=== PATIENT | male | born 1935 | race Caucasian/White ===

== ENCOUNTER 2016-10-20 18:10 | Emergency (ER) ==
[2016-10-20 18:24] VITALS: BP 154/91; TEMP 98; BMI 42.3
--- NOTE | 2016-10-20 18:38 | ED.PDOC ---
General Time Seen by Physician: 18:36 Information Source: Patient, Family Exam Limitations: No limitations Nursing and Triage Documentation Reviewed and Agree: No <JUAN MIGUEL MALHOTRA JR - Last Filed: 10/20/16 18:35> Stated Complaint: i was hurting Mode of Arrival: Walk-In Information Source: Patient, Family Exam Limitations: No limitations Nursing and Triage Documentation Reviewed and Agree: No <BRENTBenjaminJANINA RG - Last Filed: 10/20/16 20:21> ED Provider: Dr. JANINA GRIDER Chief Complaint: Abdominal Pain Primary Care Provider: ZACH ORTA GI Complaint Exam - Abdominal Pain Complaint/Exam Onset: Gradual Duration: 7 hrs Symptoms Are: Still present Timing: Intermittent Initial Severity: Mild Current Severity: Moderate Location of Pain: Diffuse Character: Reports: Dull, Aching Alleviating: Reports: None Associated Signs and Symptoms: Reports: Decreased appetite, Nausea, Vomiting. Denies: Diaphoresis, Fever, Cough, Chest pain, Dizziness, Back pain, Constipation, Blood in stool, Dysuria, Urinary frequency, Decreased urine output , Discharge Abdominal Findings: Present: None Differential Diagnoses: Bowel Obstruction, Constipation, Pancreatitis Quality Indicator For Non-Traumatic Chest Pain/Syncope: EKG Performed <BRENTTANIAJANINA - Last Filed: 10/20/16 20:21> Review of Systems - Review Of Systems Constitutional: Reports: No symptoms Eyes: Reports: No symptoms Ears, Nose, Mouth, Throat: Reports: No symptoms Respiratory: Reports: No symptoms Cardiac: Reports: No symptoms GI: Reports: No symptoms : Reports: No symptoms Musculoskeletal: Reports: No symptoms Skin: Reports: No symptoms Neurological: Reports: No symptoms Endocrine: Reports: No symptoms Hematologic/Lymphatic: Reports: No symptoms All Other Systems: Reviewed and Negative <BRENTBenjaminARCENIOJANINA - Last Filed: 10/20/16 20:21> Past Medical History - Social History Smoking Status: Former smoker Hx Substance Use: No Alcohol Screening: None <MALHOTRAJUAN MIGUEL SANTIAGO MCLEOD - Last Filed: 10/20/16 18:35> - Past Medical History Previously Healthy: Yes Endocrine: Reports: Unknown Cardiovascular: Reports: Unknown Respiratory: Reports: Unknown Hematological: Reports: Unknown Gastrointestinal: Reports: Unknown Genitourinary: Reports: Unknown Neuro/Psych: Reports: Unknown Musculoskeletal: Reports: Unknown Cancer: Reports: Unknown - Surgical History General Surgical History: Reports: Unknown - Family History Family History: Reports: Unknown - Social History Lives: With family <JANINA GRIDER - Last Filed: 10/20/16 20:21> Physical Exam - Physical Exam Appearance: Well-appearing, No pain distress, Well-nourished Pain Distress: Moderate Eyes: MILEY, EOMI, Conjunctiva clear ENT: Ears normal, Nose normal, Oropharynx normal Neck: Supple Respiratory: Airway patent, Breath sounds clear, Breath sounds equal, Respirations nonlabored Cardiovascular: RRR, Pulses normal, No rub, No murmur GI/: Soft, Nontender, No masses, Bowel sounds normal, No Organomegaly Musculoskeletal: Normal strength, ROM intact, No edema, No calf tenderness Skin: Warm, Dry, Normal color Neurological: Sensation intact, Motor intact, Reflexes intact, Cranial nerves intact, Alert, Oriented Psychiatric: Affect appropriate <BRENTTANIAJANINA - Last Filed: 10/20/16 20:21> Interpretation - Radiology Interpretation Radiology Interpretation By: Radiologist Radiology Results: Positive Exam Interpreted: CT Scan <ALEJOARCENIOJANINA Last Filed: 10/20/16 20:21> Re-Evaluation - Re-Evaluation Time of Re-Evaluation: 20:18 Status: Improved Vital Signs Stable: Yes Pain Level: 0 Appearance: NAD Lungs: Clear Skin: Warm and Dry Neuro: Alert and Oriented X3 CV: RRR <ALEJOARCENIOJANINA - Last Filed: 10/20/16 20:21> Physician Notification - Case Discussed Endorsed To/Discussed With: DR KENNEDY <JUAN MIGUEL MALHOTRA JR - Last Filed: 10/20/16 18:35> Critical Care Note - Critical Care Note Total Time (mins): 0 <CHEOJANINA - Last Filed: 10/20/16 20:21> Course <JUAN MIGUEL MALHOTRA JR - Last Filed: 10/20/16 18:35> - Course Hematology/Chemistry: 10/20/16 18:40 10/20/16 18:40 <CHEOJANINA - Last Filed: 10/20/16 20:21> - Course Orders, Labs, Meds: Lab Review 10/20/16 10/20/16 18:40 19:10 WBC 10.14 RBC 4.56 L Hgb 13.3 L Hct 41.3 L MCV 90.6 MCH 29.2 MCHC 32.2 RDW Coeff of Blair 15.1 H Plt Count 225 Immature Gran % (Auto) 0.3 Neut % (Auto) 88.7 Lymph % (Auto) 7.0 L [place] % (Auto) 3.4 Eos % (Auto) 0.1 Baso % (Auto) 0.5 Immature Gran # (Auto) 0.0 Neut # 9.0 H Lymph # 0.7 [place] # 0.3 L Eos # 0.0 Baso # 0.1 PT 24.7 H INR 2.40 Sodium 144 Potassium 4.2 Chloride 99 Carbon Dioxide 25 Anion Gap 24.2 BUN 23 H Creatinine 1.62 H Estimated GFR (MDRD) 41.00 BUN/Creatinine Ratio 14.19 Glucose 284 H Calcium 10.5 H Total Bilirubin 0.52 AST 16 ALT 19 Alkaline Phosphatase 61 Total Creatine Kinase 43 Troponin I 0.0250 Total Protein 8.6 H Albumin 4.1 Globulin 4.5 Albumin/Globulin Ratio 0.91 Amylase 69 Lipase 24 Urine Color Yellow Urine Clarity Clear Urine pH 5.0 Ur Specific [place] 1.020 Urine Protein 1+ Urine Glucose (UA) Trace Urine Ketones 1+ Urine Blood Trace-lysed Urine Nitrite Negative Urine Bilirubin Negative Urine Urobilinogen 0.2 Ur Leukocyte Esterase Negative Urine Microscopic RBC 2-5 Ur Squamous Epith Cells 5-10 H. pylori IgG Antibody Negative Orders Category Date Time Status EKG-(ED ONLY) Stat CARDIO 10/20/16 18:43 Completed ED IV/MEDIPORT/POWERPORT .ONCE EMERGENCY 10/20/16 18:33 Active AMYLASE Stat LAB 10/20/16 18:40 Completed CBC W/ AUTO DIFF Stat LAB 10/20/16 18:40 Completed COMPREHENSIVE METABOLIC PANEL Stat LAB 10/20/16 18:40 Completed CREATINE KINASE Stat LAB 10/20/16 18:40 Completed H. PYLORI SCREEN Stat LAB 10/20/16 18:40 Completed LIPASE Stat LAB 10/20/16 18:40 Completed PT WITH INR Stat LAB 10/20/16 18:40 Completed TROPONIN I Stat LAB 10/20/16 18:40 Completed URINALYSIS C & S IF INDICATED Stat LAB 10/20/16 19:10 Completed 0.9 % Sodium Chloride [Saline Flush] MEDS 10/20/16 18:33 Ordered 1 syr IVF PRN PRN Ondansetron HCl/Pf [Zofran 4 mg/2 ml] MEDS 10/20/16 18:47 Discontinued 4 mg IVP ONCE STA Sodium Chloride 0.9% [Sodium Chloride] 1,000 ml MEDS 10/20/16 18:42 Active IV 100 mls/hr CT ABDOMEN/PELVIS WO CONTRAST Stat RADS 10/20/16 18:34 Completed Medications Generic Name Dose Route Start Last Admin Trade Name Freq PRN Reason Stop Dose Admin Sodium Chloride 1,000 mls @ 100 mls/hr 10/20/16 18:42 10/20/16 19:55 Sodium Chloride IV 10/21/16 04:41 100 mls/hr .Q10H STA Administration Sodium Chloride 1 syr 10/20/16 18:33 Saline Flush IVF PRN PRN To flush IV Discontinued Medications Generic Name Dose Route Start Last Admin Trade Name Freq PRN Reason Stop Dose Admin Ondansetron HCl 4 mg 10/20/16 18:47 10/20/16 19:48 Zofran 4 Mg/2 Ml IVP 10/20/16 18:48 4 mg ONCE STA Administration Vital Signs: Temp Pulse Resp BP Pulse Ox 10/20/16 18:11 98.0 F 99 H 20 154/91 H 97 mr lucero feels his pain was positional --?hernia that reduced=---denies any nausea or vomiting--again her pain rsolved spontanously (JANINA GRIDER) Departure <JUAN MIGUEL MALHOTRA JR - Last Filed: 10/20/16 18:35> - Departure Time of Disposition: 20:20 Pt referred to PMD for follow-up: Yes Disposition Discussed With: Patient, Family <JANINA GRIDER - Last Filed: 10/20/16 20:21> - Departure Disposition: HOME SELF-CARE Discharge Problem: Abdominal pain Instructions: Abdominal Pain (ED) Condition: Good Additional Instructions: clear liquids--talk to dr orta nxt week about surgical referral for hernia, gallstones and your AAA--if you start having pain again--return to the er Allergies/Adverse Reactions: Allergies adhesive Adverse Reaction (Verified 10/20/16 18:35) Penicillins Adverse Reaction (Verified 10/20/16 18:35) Sulfa (Sulfonamide Antibiotics) Adverse Reaction (Verified 10/20/16 18:35) Home Medications: Ambulatory Orders Amlodipine Besylate 5 mg PO DAILY 08/05/13 Glimepiride 4 mg PO DAILY 08/05/13 Metformin HCl [Metformin HCl ER] 1,000 mg PO BEDTIME 08/05/13 Potassium Chloride [Micro-K Cap] 10 meq PO DAILY 08/05/13 Multivitamin [Multi Vitamin Daily] 1 each PO DAILY #1 tablet 08/08/13 Omeprazole [Prilosec] 20 mg PO QDAC PRN #1 capsule. 08/08/13 Warfarin Sodium [Coumadin] 5 mg PO DAILY tab-cap 09/23/13 Furosemide [Lasix] 40 mg PO DAILY 10/20/16 Hydroxyzine HCl [Atarax] 25 mg PO BEDTIME PRN 10/20/16 Mupirocin [Bactroban] 1 applic TP BID PRN 10/20/16 Oxycodone HCl/Acetaminophen [Oxycodone-Acetaminophen 10-325] 1 each PO Q6HR PRN 10/20/16
[2016-10-20 18:49] LABS: BASOPHILS # (AUTO) 0.1 K/uL (0-0.2); BASOPHILS % (AUTO) 0.5 % (0.0-3.0); EOSINOPHILS % (AUTO) 0.1 % (0.0-7.0); HEMATOCRIT 41.3 % (42.0-52.0); HEMOGLOBIN 13.3 g/dl (14.0-18.0); IMMATURE GRANULOCYTE % (AUTO) 0.3 % (0.0-5.0); LYMPHOCYTES # (AUTO) 0.7 K/uL (0.60-3.4); MEAN CORPUSCULAR HEMOGLOBIN 29.2 pg (27.0-31.0); MEAN CORPUSCULAR HGB CONC 32.2 (31.8-35.4); MEAN CORPUSCULAR VOLUME 90.6 fl (80.0-94.0); MONOCYTES # (AUTO) 0.3 K/uL (0.4-2.0); MONOCYTES % (AUTO) 3.4 (0-10); NEUTROPHILS % (AUTO) 88.7; PLATELET COUNT 225 10^3/uL (140-440); RED BLOOD COUNT 4.56 10^6/ul (4.70-6.10); WHITE BLOOD COUNT 10.14 K/ul (4.2-10.2)
[2016-10-20 18:59] LABS: H. PYLORI ANTIBODY NEGATIVE (NEGATIVE); H.PYLORI INTERNAL QC INTERNAL QC VALID
[2016-10-20 19:14] LABS: PROTHROMBIN TIME 24.7 SEC (9.3-11.0)
[2016-10-20 19:16] LABS: ALBUMIN 4.1 g/dL (3.4-5.0); ALBUMIN/GLOBULIN RATIO 0.91; ANION GAP 24.2; BILIRUBIN,TOTAL 0.52 mg/dL (0.00-1.20); BUN/CREATININE RATIO 14.19; CALCIUM 10.5 mg/dL (8.2-10.2); CREATININE 1.62 mg/dL (0.60-1.10); POTASSIUM 4.2 mmol/L (3.5-5.1); TOTAL PROTEIN 8.6 g/dL (5.8-8.1); TROPONIN I 0.025 ng/ml (0.0000-0.4000)
[2016-10-20 19:21] LABS: BILIRUBIN,URINE Negative (NEGATIVE); KETONES,URINE 1+ (NEGATIVE); LEUKOCYTE ESTERASE ,URINE Negative (NEGATIVE); NITRITE,URINE Negative (NEGATIVE); PROTEIN,URINE 1+ (NEGATIVE); URINE, BLOOD Trace-lysed (NEGATIVE)
[2016-10-20 19:25] LABS: ADD URINE MICROSCOPIC YES
[2016-10-20] MEDS: ZOFRAN 4 MG/2 ML IVP STA (19:48)
[2016-10-20] MEDS: SODIUM CHLORIDE 1,000 ML IV STA (19:55)
--- NOTE | 2016-10-20 20:05 | CT ---
EXAM: CT scan of the abdomen and pelvis without contrast HISTORY: Abdominal pain TECHNIQUE: Imaging of the abdomen and pelvis was performed without intravenous contrast. 3 mm thin axial images and coronal and sagittal reconstructions were provided for interpretation. Comparison none. FINDINGS: The liver, pancreas, adrenal glands appear normal. Multiple cysts are seen within the ki dneys bilaterally. Gallstones are identified. The small bowel loops are normal caliber. There is d iverticular disease of the descending colon and sigmoid colon without acute inflammation. There is a small hernia seen within the midline superior, anterior abdominal wall seen on axial image number 48. The transverse colon protrudes into the hernia. The hernia sac measures approximately 6.0 cm t ransverse, 2.6 cm AP. There is fusiform dilatation of the infrarenal abdominal aorta. The findings measure up to 5.2 cm AP, 5.5 cm transverse. The helical images obtained through the pelvis demonstrate a normal appearance of the rectum, urinar y bladder. There is no free fluid. The appendix was not seen. No definite inflammatory changes ar e seen in the right lower quadrant of the abdomen. Lung bases are clear. No lytic or blastic lesio ns are seen within the osseous structures. IMPRESSION: No evidence for small bowel obstruction. 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 Continued follow-up evaluation should be performed. Cholelithiasis. There is a hernia seen within the midline anterior abdominal wall containing a loop of transverse co zoe. The findings are not causing obstruction.
== END 2016-10-20 21:08 | disposition home or self-care (01) ==
LOC: ED 18:10
DX: R10.9 Unspecified abdominal pain (principal); K46.9 Unspecified abdominal hernia without obstruction or gangrene; K80.80 Other cholelithiasis without obstruction; I71.4 Abdominal aortic aneurysm, without rupture; Z79.899 Other long term (current) drug therapy
CPT/HCPCS: 36415; 80053; 81001; 82150; 82550; 83690; 84484; 85025; 85610; 86677; 93005; 93010; 96361; 96374; 99283

== ENCOUNTER 2018-02-04 14:15 | Outpatient (CLI) | payer OTHER | END 2018-02-04 14:33 | disposition short-term general hospital (02) | LOC: AMBL 14:15 | PROVIDERS: ATTEND Internal Medicine | DX: I48.91 Unspecified atrial fibrillation (principal) ==

== ENCOUNTER 2018-05-22 09:27 | Inpatient (IN) | payer OTHER ==
--- NOTE | 2018-05-22 11:01 | DI ---
EXAM: Single view of the chest HISTORY: Cough. COMPARISON: Chest x-ray 01/25/2011 FINDINGS: Cardiomediastinal silhouette is unchanged. There is blunting right costophrenic angle with adjacent ground-glass consolidation. The left lung is clear. The osseous structures are unremarkab le. IMPRESSION: Small right effusion with adjacent consolidation that may represent atelectasis or pneum onia.
--- NOTE | 2018-05-22 13:19 | ED.PDOC ---
General ED Provider: Dr. DAVID SHIPMAN Chief Complaint: Shortness of Air Stated Complaint: cough, shortness of breath arrived in no resp distress alert and fully orientated Time Seen by Physician: 09:40 Mode of Arrival: Ambulance Information Source: Patient, Care Home, EMT Exam Limitations: No limitations Primary Care Provider: ZACH ORTA Nursing and Triage Documentation Reviewed and Agree: Yes Does patient meet sepsis criteria?: Yes If yes, has appropriate treatment been initiated?: No System Inflammatory Response Syndrome: Not Applicable Sepsis Protocol: For patient's 13 years and over: Temp is 96.8 and below OR 101 and greater Pulse >90 BPM Resp >20/minute Acutely Altered Mental Status Are patient's symptoms suggestive of a new infection, such as: -Pneumonia -Skin, Soft Tissue -Endocarditis -UTI -Bone, Joint Infection -Implantable Device -Acute Abdominal Infection -Wound Infection -Meningitis -Blood Stream Catheter Infection -Unknown Respiratory Complaint Exam - Respiratory Complaint/Exam Symptoms Are: Resolved Timing: Intermittent Initial Severity: Mild Current Severity: None Location: Chest Character: Reports: Non-productive cough Aggravating: Reports: None Alleviating: Reports: Spontaneous resolution Associated Signs and Symptoms: Denies: Rapid breathing, Dyspnea, Fever, Chills, Chest pain, Pleuritic chest pain, Wheezing, Hemoptysis, Dizziness, Calf pain, Calf swelling, Edema, URI, Nasal congestion, Hoarseness, Sinus discomfort, Vomiting, Sore throat, Weight loss, Decreased oral intake, Increased thirst, Increased appetite, Increased urination History of Healthcare-Acquired Pneumonia: Lives at [facility] Related Surgical History: Reports: None Pulmonary Embolism Risk Factors: Bedrest Cardiac Risk Factors: Reports: Diabetes, Hypertension Pseudomonas Risk Factors: Reports: None Tuberculosis Risk Factors: Reports: None Status Asthmaticus Risk Factors: Reports: None Home Oxygen Use: Yes Recent Stress Test: No Recent Echo/LV Function: No Current Antibiotic Use: No Current Asthma Medication Use: No Respiratory Distress: None Inadequate Respiratory Effort: No Dysphagia Present: No Stridor Present: No JVD Present: No Accessory Muscle Use: No Retractions: Not Present Diminished Breath Sounds: No Sinus Tenderness: None Grunting Respirations: No Kussmaul Respirations: No Differential Diagnoses: CHF, Pulmonary Edema, Pneumonia, Bronchitis Review of Systems - Review Of Systems Constitutional: Reports: Malaise Eyes: Reports: No symptoms Ears, Nose, Mouth, Throat: Reports: No symptoms Respiratory: Reports: Cough, Short of air Cardiac: Reports: No symptoms GI: Reports: No symptoms : Reports: No symptoms Musculoskeletal: Reports: No symptoms Skin: Reports: No symptoms Neurological: Reports: No symptoms Endocrine: Reports: No symptoms Hematologic/Lymphatic: Reports: No symptoms All Other Systems: Reviewed and Negative Past Medical History - Past Medical History Previously Healthy: Yes Endocrine: Reports: Unknown Cardiovascular: Reports: Unknown Respiratory: Reports: Unknown Hematological: Reports: Unknown Gastrointestinal: Reports: Unknown Genitourinary: Reports: Unknown Neuro/Psych: Reports: Unknown Musculoskeletal: Reports: Unknown Cancer: Reports: Unknown - Surgical History General Surgical History: Reports: Unknown - Family History Family History: Reports: Unknown - Social History Smoking Status: Former smoker Hx Substance Use: No Alcohol Screening: None - Immunizations Tetanus Shot up to Date: Yes Physical Exam - Physical Exam Appearance: Ill-appearing Ill-appearing: Mild Eyes: MILEY, EOMI, Conjunctiva clear ENT: Ears normal, Nose normal, Oropharynx normal Respiratory: Breath sounds diminished (bases ), Rhonchi Cardiovascular: RRR, Pulses normal, No rub, No murmur GI/: Soft, Nontender, No masses, Bowel sounds normal, No Organomegaly Musculoskeletal: Normal strength, ROM intact, No edema, No calf tenderness Skin: Warm, Dry, Normal color Neurological: Sensation intact, Motor intact, Reflexes intact, Cranial nerves intact, Alert, Oriented Psychiatric: Affect appropriate, Mood appropriate Interpretation - Bookkeeping Manager Rate: Tachy Rhythm: Sinus Ectopy: None - EKG Interpretation Rate: Tachy Rhythm: Sinus Ectopy: None [place]: Left ST Segment: Other (LBBB PATTERN) Re-Evaluation - Re-Evaluation Time of Re-Evaluation: 11:00 Status: Improved Vital Signs Stable: Yes Pain Level: 0 Appearance: NAD Lungs: Clear Skin: Warm and Dry Neuro: Alert and Oriented X3 CV: RRR - Re-Evaluation Time of Re-Evaluation: 13:00 Status: Improved Vital Signs Stable: Yes Pain Level: 0 Appearance: NAD Skin: Warm and Dry Neuro: Alert and Oriented X3 CV: RRR (SPOKE TO FAMILY AND PMD LABS X RAY DISCUSSED) Physician Notification - Case Discussed Physician Notified: PMD Time of Notification: 13:21 Admit To: Observation Critical Care Note - Critical Care Note Total Time (mins): 0 Course - Course Hematology/Chemistry: 05/22/18 09:42 05/22/18 09:42 Orders, Labs, Meds: Lab Review 05/22/18 05/22/18 05/22/18 09:42 09:42 09:42 WBC 11.43 H RBC 3.94 L Hgb 11.3 L Hct 37.4 L MCV 94.9 H MCH 28.7 MCHC 30.2 L RDW Coeff of [place] 17.3 H Plt Count 226 Immature Gran % (Auto) 0.3 Neut % (Auto) 86.0 Lymph % (Auto) 7.0 L [place] % (Auto) 6.1 Eos % (Auto) 0.3 Baso % (Auto) 0.3 Immature Gran # (Auto) 0.0 Neut # (Auto) 9.8 H Lymph # (Auto) 0.8 [place] # (Auto) 0.7 Eos # (Auto) 0.0 Baso # (Auto) 0.0 PT 12.7 H INR 1.28 APTT 27.2 Puncture Site O2 Saturation ABG pH ABG pCO2 ABG pO2 ABG HCO3 ABG Total CO2 ABG Base Excess Yohannes Test O2 Delivery Device Oxygen Liter Flow FiO2 % Sodium 144.0 Potassium 4.58 Chloride 104.5 Carbon Dioxide 29.7 Anion Gap 14.38 BUN 21.5 H Creatinine 1.33 H Estimated GFR (MDRD) 51.00 BUN/Creatinine Ratio 16.16 Glucose 156.1 H Calcium 9.43 Total Bilirubin 1.77 H AST 23.2 ALT 14.5 Alkaline Phosphatase 99.8 Total Creatine Kinase < 20.0 L Troponin I 0.019 Total Protein 8.09 Albumin 3.79 Globulin 4.30 Albumin/Globulin Ratio 0.88 05/22/18 11:30 WBC RBC Hgb Hct MCV MCH MCHC RDW Coeff of [place] Plt Count Immature Gran % (Auto) Neut % (Auto) Lymph % (Auto) [place] % (Auto) Eos % (Auto) Baso % (Auto) Immature Gran # (Auto) Neut # (Auto) Lymph # (Auto) [place] # (Auto) Eos # (Auto) Baso # (Auto) PT INR APTT Puncture Site R rad O2 Saturation 96.0 ABG pH 7.437 ABG pCO2 40.6 ABG pO2 80.0 L ABG HCO3 27.4 H ABG Total CO2 29 H ABG Base Excess 3 H Yohannes Test + O2 Delivery Device Nc Oxygen Liter Flow 2.00 FiO2 % 28.0 Sodium Potassium Chloride Carbon Dioxide Anion Gap BUN Creatinine Estimated GFR (MDRD) BUN/Creatinine Ratio Glucose Calcium Total Bilirubin AST ALT Alkaline Phosphatase Total Creatine Kinase Troponin I Total Protein Albumin Globulin Albumin/Globulin Ratio Orders Category Date Time Status ABG DRAW REQUEST Stat CARDIO 05/22/18 11:30 Completed EKG-(ED ONLY) Stat CARDIO 05/22/18 10:11 Completed ABG Stat LAB 05/22/18 11:30 Completed CBC W/ AUTO DIFF Stat LAB 05/22/18 09:42 Completed COMPREHENSIVE METABOLIC PANEL Stat LAB 05/22/18 09:42 Completed CREATINE KINASE Stat LAB 05/22/18 09:42 Completed PARTIAL THROMBOPLASTIN TIME Stat LAB 05/22/18 09:42 Completed PT WITH INR Stat LAB 05/22/18 09:42 Completed TROPONIN I Stat LAB 05/22/18 09:42 Completed CHEST, 1V AP ONLY Stat RADS 05/22/18 10:41 Completed Vital Signs: Temp Pulse Resp BP Pulse Ox 05/22/18 09:28 99.1 F 88 22 125/80 92 L Departure - Departure Time of Disposition: 13:21 Disposition: PLACED OBSERVATION Discharge Problem: Shortness of breath Condition: Good Pt referred to PMD for follow-up: Yes IPMP verified?: No Allergies/Adverse Reactions: Allergies adhesive Adverse Reaction (Verified 10/20/16 18:35) Penicillins Adverse Reaction (Verified 10/20/16 18:35) Sulfa (Sulfonamide Antibiotics) Adverse Reaction (Verified 10/20/16 18:35) Home Medications: Ambulatory Orders Amlodipine Besylate 5 mg PO DAILY 08/05/13 Glimepiride 4 mg PO DAILY 08/05/13 Metformin HCl [Metformin HCl ER] 1,000 mg PO BEDTIME 08/05/13 Potassium Chloride [Micro-K Cap] 10 meq PO DAILY 08/05/13 Multivitamin [Multi Vitamin Daily] 1 each PO DAILY #1 tablet 08/08/13 Omeprazole [Prilosec] 20 mg PO QDAC PRN #1 capsule. 08/08/13 Warfarin Sodium [Coumadin] 5 mg PO DAILY tab-cap 09/23/13 Furosemide [Lasix] 40 mg PO DAILY 10/20/16 Hydroxyzine HCl [Atarax] 25 mg PO BEDTIME PRN 10/20/16 Mupirocin [Bactroban] 1 applic TP BID PRN 10/20/16 Oxycodone HCl/Acetaminophen [Oxycodone-Acetaminophen 10-325] 1 each PO Q6HR PRN 10/20/16 Disposition Discussed With: Patient, Family
[2018-05-22] MEDS ORDERED: PERCOCET 10-325 PO PRN (13:22)
[2018-05-22] MEDS ORDERED: SODIUM CHLORIDE 1,000 ML IV SCH (13:30)
[2018-05-22] MEDS ORDERED: HUMULIN R SUBCUT STA (13:30)
[2018-05-22 14:49] VITALS: BMI 47.7
[2018-05-22] MEDS ORDERED: BISACODYL 10 MG RC PRN (15:29)
[2018-05-22] MEDS ORDERED: AZELASTINE HCL OP PRN (15:29)
[2018-05-22] MEDS ORDERED: OXYCODONE ACETAMINOPHEN PO PRN (15:29)
[2018-05-22] MEDS ORDERED: SIMETHICONE 125 MG PO PRN (15:29)
[2018-05-22] MEDS ORDERED: INSULIN LISPRO 1 UNIT SUBCUT PRN (15:29)
[2018-05-22] MEDS ORDERED: BACTROBAN TP SCH (16:29)
[2018-05-22] MEDS ORDERED: INSULIN LISPRO SUBCUT PRN ×2 (16:30)
[2018-05-22] MEDS: PRILOSEC PO SCH (17:00)
[2018-05-22] MEDS ORDERED: PRILOSEC PO SCH (17:00)
[2018-05-22] MEDS: CARVEDILOL 3.125 MG PO SCH (17:01)
[2018-05-22] MEDS: GLIMEPIRIDE 1 MG PO SCH (17:01)
[2018-05-22] MEDS: ISOSORBIDE DINITRATE 10 MG PO SCH ×2 (17:01→21:01)
[2018-05-22] MEDS: DUONEB NEB SCH ×2 (17:05→23:40)
[2018-05-22] MEDS: ZOSYN 3.375 GM 3.375 GM in SODIUM CHLORIDE 50 ML IV SCH ×2 (19:33→21:00)
[2018-05-22] MEDS: SODIUM CHLORIDE 1,000 ML IV SCH (19:34)
[2018-05-22] MEDS ORDERED: NYSTOP POWDER TP ONE (20:27)
[2018-05-22] MEDS: NON-FORMULARY MEDICATION (Docusate Sodium [Docusate Sodium] 100 MG) PO SCH (20:42)
[2018-05-22] MEDS: NYSTATIN TP SCH (20:43)
[2018-05-22] MEDS: OXYCODONE HCL 20 MG PO SCH (21:00)
[2018-05-22] MEDS: NON-FORMULARY MEDICATION (Apixaban [Eliquis] 2.5 MG) PO SCH (21:01)
[2018-05-22] MEDS: VANCOMYCIN 1 GM in SODIUM CHLORIDE 250 ML IV SCH (21:02)
[2018-05-23] MEDS: ZOSYN 3.375 GM 3.375 GM in SODIUM CHLORIDE 50 ML IV SCH ×3 (04:28→21:08)
[2018-05-23] MEDS: DUONEB NEB SCH ×4 (04:50→23:18)
[2018-05-23] MEDS: PRILOSEC PO SCH (05:45)
[2018-05-23] MEDS: VANCOMYCIN 1 GM in SODIUM CHLORIDE 250 ML IV SCH ×3 (05:46→22:24)
[2018-05-23] MEDS ORDERED: LASIX TAB PO SCH ×2 (06:30→09:00)
[2018-05-23] MEDS ORDERED: MICRO-K CAP PO SCH (08:00)
[2018-05-23] MEDS: OXYCODONE HCL 20 MG PO SCH (08:17)
[2018-05-23] MEDS: NON-FORMULARY MEDICATION (Apixaban [Eliquis] 2.5 MG) PO SCH (08:18)
[2018-05-23] MEDS: GLIMEPIRIDE 1 MG PO SCH (08:19)
[2018-05-23] MEDS: CARVEDILOL 3.125 MG PO SCH (08:20)
[2018-05-23] MEDS: ISOSORBIDE DINITRATE 10 MG PO SCH (08:20)
[2018-05-23] MEDS: NON-FORMULARY MEDICATION (Docusate Sodium [Docusate Sodium] 100 MG) PO SCH (08:21)
[2018-05-23] MEDS: NYSTATIN TP SCH (08:22)
[2018-05-23] MEDS ORDERED: NORVASC PO SCH (09:00)
[2018-05-23] MEDS ORDERED: WARFARIN SODIUM 5 MG PO SCH (09:00)
[2018-05-23] MEDS ORDERED: FEBUXOSTAT 40 MG PO SCH (09:00)
[2018-05-23] MEDS ORDERED: DULCOLAX RC PRN (14:39)
[2018-05-23] MEDS ORDERED: PERCOCET 5-325 PO PRN (14:45)
[2018-05-23] MEDS ORDERED: MYLICON PO PRN (14:47)
[2018-05-23] MEDS ORDERED: HUMALOG SUBCUT PRN (14:53)
[2018-05-23] MEDS ORDERED: AZELASTINE HCL OP PRN (15:00)
[2018-05-23] MEDS: COREG PO SCH (16:59)
[2018-05-23] MEDS: SORBITRATE PO SCH (17:00)
[2018-05-23] MEDS: OXYCONTIN PO SCH (21:10)
[2018-05-23] MEDS: COLACE PO SCH (21:10)
[2018-05-23] MEDS: ELIQUIS PO SCH (21:10)
[2018-05-23] MEDS: NYSTOP POWDER TP SCH (22:24)
[2018-05-24] MEDS: DUONEB NEB SCH ×3 (04:27→17:00)
[2018-05-24] MEDS: ZOSYN 3.375 GM 3.375 GM in SODIUM CHLORIDE 50 ML IV SCH ×3 (04:35→20:48)
[2018-05-24] MEDS: VANCOMYCIN 1 GM in SODIUM CHLORIDE 250 ML IV SCH ×2 (05:49→14:09)
[2018-05-24] MEDS: LASIX TAB PO SCH (05:49)
[2018-05-24] MEDS: PRILOSEC PO SCH (05:50)
[2018-05-24] MEDS: MICRO-K CAP PO SCH (08:06)
[2018-05-24] MEDS: COLACE PO SCH ×2 (08:06→20:48)
[2018-05-24] MEDS: AMARYL PO SCH (08:06)
[2018-05-24] MEDS: OXYCONTIN PO SCH ×2 (08:07→20:49)
[2018-05-24] MEDS: COREG PO SCH ×2 (08:07→16:39)
[2018-05-24] MEDS: ULORIC PO SCH (08:07)
[2018-05-24] MEDS: ELIQUIS PO SCH ×2 (08:08→20:49)
[2018-05-24] MEDS: NYSTOP POWDER TP SCH ×2 (08:08→20:55)
[2018-05-24] MEDS: SORBITRATE PO SCH ×3 (08:19→17:07)
[2018-05-24] MEDS: SODIUM CHLORIDE 1,000 ML IV SCH (13:44)
[2018-05-24] MEDS: PERCOCET 5-325 PO PRN (16:41)
[2018-05-25] MEDS: DUONEB NEB SCH ×5 (00:55→23:03)
[2018-05-25] MEDS: ZOSYN 3.375 GM 3.375 GM in SODIUM CHLORIDE 50 ML IV SCH ×3 (06:59→20:28)
[2018-05-25] MEDS: LASIX TAB PO SCH (07:00)
[2018-05-25] MEDS: PRILOSEC PO SCH (07:00)
[2018-05-25] MEDS: MICRO-K CAP PO SCH (08:49)
[2018-05-25] MEDS: COLACE PO SCH ×2 (08:49→20:24)
[2018-05-25] MEDS: ULORIC PO SCH (08:50)
[2018-05-25] MEDS: OXYCONTIN PO SCH ×2 (08:50→20:27)
[2018-05-25] MEDS: COREG PO SCH ×2 (08:50→17:12)
[2018-05-25] MEDS: SORBITRATE PO SCH ×3 (08:50→17:16)
[2018-05-25] MEDS: AMARYL PO SCH (08:51)
[2018-05-25] MEDS: ELIQUIS PO SCH ×2 (08:52→20:26)
[2018-05-25] MEDS: NYSTOP POWDER TP SCH ×2 (08:52→20:34)
[2018-05-25] MEDS: VANCOMYCIN 1.5 GM in SODIUM CHLORIDE 500 ML IV SCH (10:14)
[2018-05-25] MEDS: SODIUM CHLORIDE 1,000 ML IV SCH (22:00)
[2018-05-26] MEDS: ZOSYN 3.375 GM 3.375 GM in SODIUM CHLORIDE 50 ML IV SCH ×3 (04:24→21:19)
[2018-05-26] MEDS: DUONEB NEB SCH ×4 (05:05→23:06)
[2018-05-26] MEDS: PRILOSEC PO SCH (06:08)
[2018-05-26] MEDS: LASIX TAB PO SCH (06:08)
[2018-05-26] MEDS: VANCOMYCIN 1.5 GM in SODIUM CHLORIDE 500 ML IV SCH (08:36)
[2018-05-26] MEDS: ULORIC PO SCH (08:37)
[2018-05-26] MEDS: COLACE PO SCH ×2 (08:37→21:19)
[2018-05-26] MEDS: MICRO-K CAP PO SCH (08:37)
[2018-05-26] MEDS: COREG PO SCH ×2 (08:37→16:58)
[2018-05-26] MEDS: AMARYL PO SCH (08:37)
[2018-05-26] MEDS: ELIQUIS PO SCH ×2 (08:38→21:20)
[2018-05-26] MEDS: OXYCONTIN PO SCH ×2 (08:41→21:19)
[2018-05-26] MEDS: SORBITRATE PO SCH ×3 (08:42→16:59)
[2018-05-26] MEDS: NYSTOP POWDER TP SCH ×2 (08:57→21:24)
[2018-05-26] MEDS: PERCOCET 5-325 PO PRN (18:07)
[2018-05-27] MEDS: SODIUM CHLORIDE 1,000 ML IV SCH ×2 (00:12→17:25)
[2018-05-27] MEDS: DUONEB NEB SCH ×4 (04:48→23:10)
[2018-05-27] MEDS: ZOSYN 3.375 GM 3.375 GM in SODIUM CHLORIDE 50 ML IV SCH ×2 (05:18→14:32)
[2018-05-27] MEDS: LASIX TAB PO SCH (05:49)
[2018-05-27] MEDS: PRILOSEC PO SCH (05:49)
[2018-05-27] MEDS: NYSTOP POWDER TP SCH ×2 (09:19→21:29)
[2018-05-27] MEDS: MICRO-K CAP PO SCH (09:19)
[2018-05-27] MEDS: OXYCONTIN PO SCH ×2 (09:19→20:58)
[2018-05-27] MEDS: COREG PO SCH ×2 (09:20→16:40)
[2018-05-27] MEDS: VANCOMYCIN 1.5 GM in SODIUM CHLORIDE 500 ML IV SCH (09:21)
[2018-05-27] MEDS: ULORIC PO SCH (09:21)
[2018-05-27] MEDS: COLACE PO SCH ×2 (09:21→20:58)
[2018-05-27] MEDS: SORBITRATE PO SCH ×3 (09:21→18:37)
[2018-05-27] MEDS: AMARYL PO SCH (09:21)
[2018-05-27] MEDS: ELIQUIS PO SCH ×2 (09:25→20:58)
[2018-05-27] MEDS: DOXYCYCLINE HYCLATE PO SCH (20:58)
[2018-05-28] MEDS: DUONEB NEB SCH ×3 (04:40→18:00)
[2018-05-28] MEDS: LASIX TAB PO SCH (05:39)
[2018-05-28] MEDS: PRILOSEC PO SCH (05:39)
[2018-05-28] MEDS: ULORIC PO SCH (08:49)
[2018-05-28] MEDS: COREG PO SCH ×2 (08:49→16:59)
[2018-05-28] MEDS: AMARYL PO SCH (08:49)
[2018-05-28] MEDS: DOXYCYCLINE HYCLATE PO SCH ×2 (08:49→20:19)
[2018-05-28] MEDS: COLACE PO SCH ×2 (08:49→20:20)
[2018-05-28] MEDS: MICRO-K CAP PO SCH (08:50)
[2018-05-28] MEDS: OXYCONTIN PO SCH ×2 (08:50→20:20)
[2018-05-28] MEDS: SORBITRATE PO SCH ×3 (08:50→16:59)
[2018-05-28] MEDS: NYSTOP POWDER TP SCH ×2 (08:51→21:22)
[2018-05-28] MEDS: ELIQUIS PO SCH ×2 (08:52→20:20)
[2018-05-28] MEDS: PERCOCET 5-325 PO PRN ×2 (11:04→19:50)
[2018-05-28 14:33] VITALS: BP 118/76; TEMP 97.9
== END 2018-05-28 22:00 | DRG 603 ==
LOC: ED 09:27 → MEDSURG B 13:24 → OBSVTOIN 13:25
PROVIDERS: ADMIT Family Medicine; ATTEND Family Medicine
DX: L03.116 Cellulitis of left lower limb (principal); I82.409 Acute embolism and thrombosis of unspecified deep veins of unspecified lower extremity; L03.115 Cellulitis of right lower limb; I50.9 Heart failure, unspecified; R05 Cough; R53.81 Other malaise; R53.83 Other fatigue; R53.1 Weakness; R21 Rash and other nonspecific skin eruption; M79.662 Pain in left lower leg; M79.661 Pain in right lower leg
CPT/HCPCS: 36415; 80048; 80053; 80202; 82550; 82803; 82962; 84484; 85025; 85610; 85730; 87070; 87081; 87186; 93005; 93010; 94640; 99284

== ENCOUNTER 2018-05-28 21:23 | Outpatient (CLI) | END 2018-05-28 21:31 | LOC: AMBL 21:23 | PROVIDERS: ATTEND Family Medicine | DX: I50.9 Heart failure, unspecified (principal); Z99.81 Dependence on supplemental oxygen ==